=== PATIENT | male | born 1975 | race Caucasian/White ===

== ENCOUNTER 2019-04-13 11:47 | Emergency (ER) | payer MEDICAID ==
[~2019-04-13] VITALS: Ht 182.9 cm; Wt 79.1 kg
[~2019-04-13 11:47] MED LIST: ASPI-1009 PO; NITR0.4T SL; [UNRECOGNIZED DRUG - CODE] SL
[2019-04-13 12:01] VITALS: BP 111/70
[2019-04-13] MEDS ORDERED: AMOX-580 PO (12:23)
[2019-04-13] MEDS ORDERED: TETanus/Pertussis (Acell)/Diphther VAC/PF (Tdap-Adult) 0.5ml syringe IMVAC ONE (12:30)
== END 2019-04-13 12:45 | disposition home or self-care (01) ==
LOC: ER 11:48
DX: S91.332A Puncture wound without foreign body, left foot, initial encounter (principal); I25.10 Atherosclerotic heart disease of native coronary artery without angina pectoris; Z98.61 Coronary angioplasty status; Z60.2 Problems related to living alone; Z79.2 Long term (current) use of antibiotics; Z79.899 Other long term (current) drug therapy; W45.0XXA Nail entering through skin, initial encounter; Y93.89 Activity, other specified; Y92.89 Other specified places as the place of occurrence of the external cause; Y99.8 Other external cause status
CPT/HCPCS: 73630; 90471; 99283

== ENCOUNTER 2020-05-13 18:05 | Emergency (ER) | payer MEDICAID ==
[~2020-05-13] VITALS: Ht 182.9 cm; Wt 76.3 kg
[2020-05-13 18:33] VITALS: BP 111/66
== END 2020-05-13 20:49 | disposition home or self-care (01) ==
LOC: ER 18:06
DX: H61.23 Impacted cerumen, bilateral (principal); H92.01 Otalgia, right ear; I25.10 Atherosclerotic heart disease of native coronary artery without angina pectoris; Z98.890 Other specified postprocedural states; Z60.2 Problems related to living alone; Z79.899 Other long term (current) drug therapy
CPT/HCPCS: 69209; 99282

== ENCOUNTER 2021-02-15 22:51 | Emergency (ER) | payer MEDICAID | END 2021-02-16 01:01 | disposition left against medical advice (07) | LOC: ER 22:52 | DX: S09.90XA Unspecified injury of head, initial encounter (principal); Z53.21 Procedure and treatment not carried out due to patient leaving prior to being seen by health care provider; X58.XXXA Exposure to other specified factors, initial encounter; Y93.89 Activity, other specified; Y92.89 Other specified places as the place of occurrence of the external cause; Y99.8 Other external cause status ==

== ENCOUNTER 2021-11-19 10:47 | Emergency (ER) | payer MEDICAID ==
[~2021-11-19] VITALS: Ht 182.9 cm; Wt 77.3 kg
[2021-11-19 11:09] VITALS: BP 130/79
== END 2021-11-19 14:01 | disposition home or self-care (01) ==
LOC: ER 10:47
DX: H61.23 Impacted cerumen, bilateral (principal); I25.10 Atherosclerotic heart disease of native coronary artery without angina pectoris
CPT/HCPCS: 99281

== ENCOUNTER 2024-02-07 09:06 | Day surgery (SDC) | payer MEDICAID ==
[2024-01-31 15:27] LABS: BASOPHILS % (AUTO) 0.7 % (0-1); EOSINOPHILS # (AUTO) 0.1 X10'3 (0-0.9); EOSINOPHILS % (AUTO) 1.6 % (0-6); LYMPHOCYTES # (AUTO) 2.2 X10'3 (1.1-4.8); LYMPHOCYTES % (AUTO) 35.4 % (21-51); MEAN CORPUSCULAR HEMOGLOBIN 33.2 PG (27.0-31.0); MEAN CORPUSCULAR VOLUME 97.8 FL (78-98); MONOCYTES # (AUTO) 0.5 X10'3 (0-0.9); MONOCYTES % (AUTO) 8.5 % (2-12); NEUTROPHILS # (AUTO) 3.3 X10'3 (1.8-7.7); NEUTROPHILS % (AUTO) 53.8 % (42-75); PRE OP HEMATOCRIT 50.4 % (42.0-52.0); PRE OP HEMOGLOBIN 17.1 g/dL (14.0-17.9); PRE OP PLATELET COUNT 212 X10'3 (140-440); PRE OP WHITE BLOOD COUNT 6.2 10'3 (4.8-10.8); RED BLOOD COUNT 5.16 X10'6 (4.70-6.10)
[~2024-02-07] VITALS: Ht 182.9 cm; Wt 63.4 kg
[2024-02-07] VITALS (14 sets, daily range): BP systolic 124–166; BP diastolic 71–113; PULSE 53–94; RESP 14–21; TEMP 98.4; O2SAT 97–100
[2024-02-07] MEDS: cefazolin 2gm/D5W 100mL 100 ML IV ONE (05:30)
[~2024-02-07 09:06] MED LIST changes: -ASPI-1009 PO; +IBUP-49 PO; -NITR0.4T SL; -[UNRECOGNIZED DRUG - CODE] SL
[2024-02-07] MEDS: famotidine 20mg tablet PO ONE (09:40)
[2024-02-07] MEDS: ringers solution, lacted 1,000 ML IV SCH (09:41)
[2024-02-07] MEDS ORDERED: sevoflurane 250ml liquid IH ONE (09:47)
[2024-02-07] MEDS ORDERED: ondansetron/PF 4mg/2ml inj IV PRN (09:50)
[2024-02-07] MEDS ORDERED: meperidine/PF 25mg/ml syringe IV PRN ×3 (09:50)
[2024-02-07] MEDS ORDERED: morphine 4 MG/ML inj SYRINge IV PRN (09:50)
[2024-02-07] MEDS ORDERED: morphine 2 MG/ML inj. syringe IV PRN (09:50)
[2024-02-07] MEDS ORDERED: ringers solution, lacted 1,000 ML IV SCH (09:50)
[2024-02-07] MEDS ORDERED: proCHLORperazine 10 MG/2 ml inj IV PRN (09:50)
[2024-02-07] MEDS ORDERED: fentaNYL/PF 50MCG/1 ML 2ML syringe ONE (09:54)
[2024-02-07] MEDS ORDERED: midazolam 1 mg/ML 2ml injection ONE (09:54)
[2024-02-07] MEDS: BUPIVAcaine 2.5mg/ml inj 50ml vial (contains preservative) ONE (10:10)
[2024-02-07] MEDS: LIDOcaine 1% 30ml preserv. free vial ONE (10:10)
[2024-02-07] MEDS ORDERED: dexamethasone sod phosphate 4mg/ml inj. ONE (11:34)
[2024-02-07] MEDS ORDERED: rocuronium 10mg/ml inj IV ONE (11:34)
[2024-02-07] MEDS ORDERED: propofol inj 20 ML IV ONE (11:34)
[2024-02-07] MEDS ORDERED: glycopyrrolate 0.2mg/ml inj ONE (11:34)
[2024-02-07] MEDS ORDERED: neostigmine methylsulfate 1 MG/ML 10ml vial ONE (11:34)
[2024-02-07] MEDS ORDERED: ondansetron/PF 4mg/2ml inj ONE (11:34)
[2024-02-07] MEDS ORDERED: HYDROcodone/acetaminophen 5mg/325mg tablet PO PRN (11:35)
[2024-02-07] MEDS: HYDROcodone/acetaminophen 5mg/325mg tablet PO PRN (12:53)
== END 2024-02-07 14:54 | disposition home or self-care (01) ==
LOC: PAS 09:06
PROVIDERS: ATTEND Surgery
DX: K40.90 Unilateral inguinal hernia, without obstruction or gangrene, not specified as recurrent (principal); I45.10 Unspecified right bundle-branch block; I25.119 Atherosclerotic heart disease of native coronary artery with unspecified angina pectoris; F17.200 Nicotine dependence, unspecified, uncomplicated; Z86.73 Personal history of transient ischemic attack (TIA), and cerebral infarction without residual deficits; Z79.1 Long term (current) use of non-steroidal anti-inflammatories (NSAID); Z95.5 Presence of coronary angioplasty implant and graft; Z82.3 Family history of stroke; Z83.3 Family history of diabetes mellitus; Z82.49 Family history of ischemic heart disease and other diseases of the circulatory system
CPT/HCPCS: 36415; 49650; 82948; 85025; 93005; C1781; J0690; J1100; J2250; J2405; J2704; J2710; J3010; J3490; J7030; J7120; S2900; Z7506; Z7508; Z7512; A4215; A4314; A4618

== ENCOUNTER 2025-01-20 13:47 | Inpatient (IN) | payer MEDICAID ==
[~2025-01-20] VITALS: Ht 182.9 cm; Wt 66.5 kg
[2025-01-20] MEDS ORDERED: FLUO20TA28 PO (14:15)
[2025-01-20] MEDS ORDERED: BUPR-726 (14:15)
--- NOTE | 2025-01-20 14:18 | Physician Documentation ---
History of Present Illness Chief Complaint: Abdominal Pain Stated Complaint: ABDOMINAL PAIN OK to notify your PCP?: Yes Primary Medical Doctor: NONE Source: patient, family, RN/MD Mode of Arrival: POV Exam Limitations: no limitations HPI 49-year-old male presents with epigastric pain, tender to palpation since Tuesday. He denies any nausea or vomiting has been having hot and cold chills and sweats. He had a right inguinal here hernia repair with mesh 7 months ago. Patient does admit to drinking about four tall boys of beer daily. He states he has not drank alcohol for about six days. Patient denies any chest pain or shortness of breath or nausea, vomiting, diarrhea. Patient states he just does not feel well. He has no other concern or complaint at this time. Medication Reconciliation Allergies: Coded Allergies: No Known Allergies (Unverified , 03/09/11) Scheduled Fluoxetine HCl (Fluoxetine HCl), 1 TAB PO DAILY, (Reported) Scheduled PRN Ibuprofen (Ibu-200), 1-2 TAB PO Q6H PRN PRN for pain, (Reported) Miscellaneous Medications Bupropion HCl (Bupropion Xl), (Reported) Past Medical History Past Medical History: Coronary Artery Disease Past Surgical History: angioplasty Alcohol Use: None Drug Use: none Lives with: Alone Lives In: Home Occupation: other Review of Systems All Other Systems at this time: Reviewed and Negative Constitutional: Denies: chills, fever, weakness Eyes: Denies: pain, blurred vision ENT: Denies: ear pain, nose pain, throat pain, mouth pain Respiratory: Denies: cough, shortness of breath Cardiovascular: Denies: chest pain, palpitations Gastrointestinal: Denies: abdominal pain, nausea, vomiting Genitourinary: Denies: burning, dysuria Male Genitalia: Denies: penile discharge, testicular pain Neurological: Denies: headache, dizziness Musculoskeletal: Denies: pain, swelling Integumentary: Denies: rash, lesions Allergic/Immunologic: Denies: hives, itching Hematologic/Lymphatic: Denies: no symptoms reported Psychiatric: Denies: depression, anxiety Physical Exam Vital Signs: RN Vital Signs have been reviewed: Yes, Temperature: 97.6, Source: Oral, Heart Rate: 97, Respiratory Rate: 18, BP: 92/62, Pulse Oximetry: 98, Weight: 66.450 Oxygen Flow Rate: 0 Pulse Oximetry Reflects: adequate oxygenation Physical Exam General: Alert, no distress. HEENT: No injection, moist mucous membranes. Neck: Full range of motion. Respiratory: No respiratory distress, equal chest rise and fall. Chest: No accessory muscle use. Cardiovascular: Regular rate and rhythm. Gastrointestinal: Nondistended. Tender to palpation in epigastric region, patient has some guarding in the left upper quadrant, no rebound tenderness, no masses, abdomen is soft. Extremities: Normal range of motion, no deformity. Neurologic: Oriented x4. Psychiatric: Normal mood and affect. Skin: Normal color, warm and dry. Progress Results/Orders Results/Orders Orders - [facility] [employer] Urinalysis, Cult If Indicated (01/20/25 14:15) Cbc/Diff (01/20/25 14:15) BMP (01/20/25 14:15) Lipase (01/20/25 14:15) CMP (01/20/25 14:15) Vital Signs 01/20/25 14:10 Temp 97.6 Pulse 97 Resp 18 B/P (MAP) 92/62 Pulse Ox 98 O2 Flow Rate 0 EKG/XRAY/CT/US/VASC/MRI CT : Impression CAT SCAN Patient: SANAZ RAHMAN Medical Record: [id number] OF [facility] : 1975, Age: 49 Sex: Male Location: ER Patient Status: REG ER Service Date/Time: 01/20/251624 Ordering Physician: JLUIS PRIEST PAC Exam: CT ABDOMEN P DEBRA Exam: CT CT ABDOMEN PELVIS W/ IV CONTRAST History: LUQ abd pain COMPARISON: None Technique: Multidetector spiral CT of the abdomen and pelvis was performed from lung bases to pubic symphysis. Intravenous contrast was administered during this examination. Portal venous imaging was obtained. Axial, coronal and sagittal multiplanar reformats were performed by the technologist on a separate workstation. Radiation Dose : 1. Abdomen/Pelvis: CTDIvol 8.9 mGy, DLP 440 mGy*cm. CONTRAST: 100 mL omni 300 Findings: Lung Bases: Visualized heart is unremarkable. Along the posterior aspect of the bilateral lower lobes there is partial visualization of continuous subpleural blebs/ bullae. Calcified subcentimeter nodule in the right lower lobe is commonly due to old granulomatous disease. Liver: Liver measures 25 cm in craniocaudal length. There is diffusely decreased hepatic parenchymal attenuation. Normal hepatic vascular enhancement. Mild focal fatty sparing along the gallbladder fossa. Gallbladder and Biliary Tree: Possible mild pericholecystic fluid. No biliary ductal dilatation. Spleen: Spleen measures 13.3 cm in length. Pancreas: The pancreas is normal in appearance without focal lesions or abnormal enhancement. Adrenal Glands: Unremarkable Kidneys: Numerous small renal cysts and subcentimeter hypodensities which are too small to characterize. No hydronephrosis. Bladder: Unremarkable Bowel: Mild gastric wall thickening. Small bowel and colon are normal in caliber and distribution. Normal appendix is visualized in the right lower quadrant without findings of appendicitis. Ascites: Absent Lymphadenopathy: No mesenteric, retroperitoneal or periportal lymphadenopathy. Abdominal Wall and Mesentery: Unremarkable. Vasculature: The visualized abdominal aorta is normal in size and caliber. Abdominal and pelvic vessels demonstrate normal enhancement. Pelvic Organs: Unremarkable Musculoskeletal: No acute osseous abnormalities. Mild multilevel degenerative changes in the lumbar spine. IMPRESSION: 1. Mild gastric wall thickening could be due to poor distention versus gastritis. 2. Possible mild pericholecystic fluid. Consider right upper quadrant ultrasound if there are symptoms in this area. 3. Significant hepatomegaly and steatosis. Mild splenomegaly. 4. Numerous small bilateral renal cysts. 5. Subpleural blebs/ bullae at the lung bases. Radiation optimization: All CT scans at this facility use at least one of these dose optimization techniques: automated exposure control mA and/or kV adjustment per patient size (includes targeted exams where dose is matched to clinical indication) or iterative reconstruction. Electronically Signed by:JAMISON REGALADO DO Date & Time: 01/20/252045 Dictated by: JAMISON REGALADO DO Dictation date and time: 01/20/252045 Primary Care Provider: NO PRIMARY CARE PROVIDER cc: JLUIS PRIEST ~ Medical Decision Making Findings 49-year-old male presents with epigastric pain, tender to palpation since Tuesday. He denies any nausea or vomiting has been having hot and cold chills and sweats. He had a right inguinal here hernia repair with mesh 7 months ago. Patient does admit to drinking about four tall boys of beer daily. He states he has not drank alcohol for about six days. Patient denies any chest pain or shortness of breath or nausea, vomiting, diarrhea. Patient states he just does not feel well. He has no other concern or complaint at this time. Patient did have blood work which showed significant elevation of the LFTs as well as hyponatremia and thrombocytopenia. Hospitalist was consulted. CT scan of abdomen did show hepatomegaly. Patient will be admitted to the hospital. For further eval and treatment. Departure Disposition: ADMITTED INPATIENT Admitted to Inpatient Unit: to hospitalist Admission Level of Care: Med/Surg Impression: Primary Impression: Abdominal pain Qualified Codes: R10.13 - Epigastric pain Additional Impressions: LFT elevation Hepatomegaly Alcoholism Condition: Stable Discharge Instructions: Abdominal Pain (Nonspecific) Additional Instructions: Patient did have blood work which showed significant elevation of the LFTs as well as hyponatremia and thrombocytopenia. Hospitalist was consulted. CT scan of abdomen did show hepatomegaly. Patient will be admitted to the hospital. For further eval and treatment. Referrals: NO PRIMARY CARE PROVIDER (PCP) Additional Comment Medical Screen Exam This patient recieved a medical screening examination. After reviewing the individual's medical complaints with presenting symptoms and performing an appropriate physical examination, it was determined that no immediate life- threatening emergency medical condition is present. This individual is also not a women having contractions. Signature Scribe Signature: No scribe Attestation: No scribe [employer] Jan 20, 2025 14:18 JLUIS PRIEST Jan 21, 2025 00:01
[2025-01-20 14:52] LABS: BASOPHILS % (AUTO) 0.2 % (0-1); EOSINOPHILS % (AUTO) 0.1 % (0-6); HEMATOCRIT 49.6 % (42.0-52.0); HEMOGLOBIN 17.1 g/dl (14.0-17.9); LYMPHOCYTES # (AUTO) 0.4 X10'3 (1.1-4.8); LYMPHOCYTES % (AUTO) 10.7 % (21-51); MEAN CORPUSCULAR HEMOGLOBIN 32.3 PG (27.0-31.0); MEAN CORPUSCULAR HGB CONC 34.5 g/dL (33.0-36.5); MEAN CORPUSCULAR VOLUME 93.5 FL (78-98); MEAN PLATELET VOLUME 9.9 FL (7.4-10.4); MONOCYTES # (AUTO) 0.3 X10'3 (0-0.9); MONOCYTES % (AUTO) 7.2 % (2-12); NEUTROPHILS # (AUTO) 3.1 X10'3 (1.8-7.7); NEUTROPHILS % (AUTO) 81.8 % (42-75); PLATELET COUNT 51 X10'3 (140-440); RED CELL DISTRIBUTION WIDTH 14.3 % (11.5-14.5); WHITE BLOOD COUNT 3.7 X10'3 (4.5-11.0)
[2025-01-20 14:57] LABS: ANION GAP 6 (8-16); BLOOD UREA NITROGEN 21 MG/DL (7-18); CHLORIDE 95 MMOL/L (99-107); CREATININE 1.04 MG/DL (0.60-1.10); GLUCOSE 125 MG/DL (70-104); POTASSIUM 3.5 MMOL/L (3.5-5.1); SODIUM 132 MMOL/L (135-145); TOTAL CARBON DIOXIDE 30.6 MMOL/L (24-32)
[2025-01-20 14:58] LABS: ALANINE AMINOTRANSFERASE 615 U/L (12-78); ALBUMIN 3.2 G/DL (3.4-5.0); ALBUMIN/GLOBULIN RATIO 0.8 (1.1-1.5); ALKALINE PHOSPHATASE 180 IU/L (46-116); ASPARTATE AMINO TRANSFERASE 841 U/L (10-37); BILIRUBIN,TOTAL 3.1 MG/DL (0.1-1.0); BUN/CREATININE RATIO 20.2 (10.0-20.0); CALCIUM 8.4 MG/DL (8.5-10.1); LIPASE 49 U/L (16-77); TOTAL PROTEIN 7.2 G/DL (6.4-8.2); eCRCL 79 ML/MIN; eGFR 75 ML/MIN
[2025-01-20 15:21] LABS: BILIRUBIN,URINE LARGE (Neg); CLARITY,URINE SLIGHTLY CLOUDY (Clear); GLUCOSE, URINE 250 mg/dl (Neg); KETONES,URINE TRACE mg/dl (Neg); LEUKOCYTE ESTERASE ,URINE NEGATIVE (Neg); NITRITES, URINE NEGATIVE (Neg); OCCULT BLOOD,URINE TRACE-INTACT (Neg); PROTEIN,URINE >=300 mg/dl (Neg); UROBILINOGEN,URINE >=8.0 E.U/dL (0.2-1.0)
[2025-01-20 15:34] LABS: COLOR,URINE AMBER (Yellow); UA COLLECTION TYPE CLN CATCH MIDSTREAM
[2025-01-20 15:35] LABS: RBC,URINE 0-2 /HPF (0-2); WBC,URINE 0-4 /HPF (0-4)
[2025-01-20 15:36] LABS: BACTERIA,URINE FEW /HPF (Neg); SQUAMOUS EPITHELIAL CELL,UR FEW /LPF (FEW)
[2025-01-20 15:37] LABS: AMORPHOUS URATES 1+; COARSE GRANULAR CAST 0-3 /LPF (NEGATIVE); FINE GRANULAR CAST 0-3 /LPF (NEGATIVE)
[2025-01-20] MEDS ORDERED: iohexol 300mg/ml 100ml inj. ONE (17:02)
--- NOTE | 2025-01-20 20:48 | RADIOLOGY REPORT ---
Exam: CT CT ABDOMEN PELVIS W/ IV CONTRAST History: LUQ abd pain COMPARISON: None Technique: Multidetector spiral CT of the abdomen and pelvis was performed from lung bases to pubic s ymphysis. Intravenous contrast was administered during this examination. Portal venous imaging was obtained. Axial, coronal and sagittal multiplanar reformats were performed by the technologist on a separate workstation. Radiation Dose : 1. Abdomen/Pelvis: CTDIvol 8.9 mGy, DLP 440 mGy*cm. CONTRAST: 100 mL omni 300 Findings: Lung Bases: Visualized heart is unremarkable. Along the posterior aspect of the bilateral lower lobes there is partial visualization of continuous subpleural blebs/ bullae. Calcified subcentimeter nodul e in the right lower lobe is commonly due to old granulomatous disease. Liver: Liver measures 25 cm in craniocaudal length. There is diffusely decreased hepatic parenchymal attenuation. Normal hepatic vascular enhancement. Mild focal fatty sparing along the gallbladder f tremayne. Gallbladder and Biliary Tree: Possible mild pericholecystic fluid. No biliary ductal dilatation. Spleen: Spleen measures 13.3 cm in length. Pancreas: The pancreas is normal in appearance without focal lesions or abnormal enhancement. Adrenal Glands: Unremarkable Kidneys: Numerous small renal cysts and subcentimeter hypodensities which are too small to characte rize. No hydronephrosis. Bladder: Unremarkable Bowel: Mild gastric wall thickening. Small bowel and colon are normal in caliber and distribution. N ormal appendix is visualized in the right lower quadrant without findings of appendicitis. Ascites: Absent Lymphadenopathy: No mesenteric, retroperitoneal or periportal lymphadenopathy. Abdominal Wall and Mesentery: Unremarkable. Vasculature: The visualized abdominal aorta is normal in size and caliber. Abdominal and pelvic vess els demonstrate normal enhancement. Pelvic Organs: Unremarkable Musculoskeletal: No acute osseous abnormalities. Mild multilevel degenerative changes in the lumbar spine. IMPRESSION: 1. Mild gastric wall thickening could be due to poor distention versus gastritis. 2. Possible mild pericholecystic fluid. Consider right upper quadrant ultrasound if there are sympto ms in this area. 3. Significant hepatomegaly and steatosis. Mild splenomegaly. 4. Numerous small bilateral renal cysts. 5. Subpleural blebs/ bullae at the lung bases. Radiation optimization: All CT scans at this facility use at least one of these dose optimization nicolette hniques: automated exposure control mA and/or kV adjustment per patient size (includes targeted exam s where dose is matched to clinical indication) or iterative reconstruction.
[2025-01-20 21:09] LABS: ACETAMINOPHEN < 2.0 UG/ML (10-30); ETHANOL < 10 MG/DL (<10)
[2025-01-20] MEDS: ketorolac trometh 30MG/ML vial 30 MG/ML VIAL IV STA (21:33)
[2025-01-20] MEDS: nicotine 21mg patch - 24 hr TD STA (21:34)
[2025-01-20 21:50] VITALS: RESP 12; O2SAT 95
[2025-01-20] MEDS ORDERED: dextrose 50%-water 50ml dispensing syringe IV PRN (21:55)
[2025-01-20] MEDS ORDERED: acetaminophen 325mg tablet PO PRN (21:55)
[2025-01-20] MEDS ORDERED: magnesium Cl slow-release 64mg tablet PO PRN ×2 (21:55)
[2025-01-20] MEDS ORDERED: LORazepam 1 MG tablet PO PRN (21:55)
[2025-01-20] MEDS ORDERED: ondansetron/PF 4mg/2ml inj IV PRN (21:55)
[2025-01-20] MEDS ORDERED: potassium Cl 40MEQ/1/2NS 520ml 520 ML IV PRN (21:55)
[2025-01-20] MEDS ORDERED: LORazepam 2 mg/ml vial IV PRN (21:55)
[2025-01-20] MEDS ORDERED: haloperidol lactate 5mg/ml inj IM PRN (21:55)
[2025-01-20] MEDS ORDERED: mag hydrox/Alum hydrox/simeth 30ml oral suspension PO PRN (21:55)
[2025-01-20] MEDS ORDERED: magnesium sulf-water 4G/100mL 100 ML IV PRN ×2 (21:55)
[2025-01-20] MEDS ORDERED: haloperidol 5mg tablet PO PRN (21:55)
[2025-01-20] MEDS ORDERED: magnesium sulf-water 2g/50mL 50 ML IV PRN ×2 (21:55)
[2025-01-20] MEDS ORDERED: magnesium hydroxide 30ml (MOM) UD suspension PO PRN (21:55)
[2025-01-20] MEDS: PERFLUTREN PROTEIN-A MICROSPHR (Optison) 0.22 MG/ML 3ML VIAL IV ONE (21:55)
[2025-01-20 22:00] VITALS: BP 95/71; PULSE 109; RESP 12; TEMP 98.5; O2SAT 95
[2025-01-20] MEDS: normal saline 1000ml 1,000 ML IV SCH (22:11)
[2025-01-20] MEDS: nicotine 14mg patch - 24hr TD ONE (23:20)
--- NOTE | 2025-01-20 23:24 | HISTORY AND PHYSICAL-Residence ---
History & Physical Providers to CC Resident Creating Document: AYUSH OSORIO, RES CC: WINSOME PEDRO MD ~ History of Present Illness Primary Medical Doctor: NONE Reason for Admit\Complaint: Abdominal pain since Tuesday History of Present Illness A 49-year-old male with no significant medical history presented to the ED with periumbilical and epigastric pain that started on Tuesday with a severity of 6/10, sharp pain in character, no radiation, does not increased on deep breaths or any other aggravating factors but decreases with pain meds. Patient went to primary care doctor on Tuesday who recommended labs and ultrasound. Patient also had associated fever, chills and diarrhea for the last two days. Patient describes the diarrhea as lose formed stools for about 6-7 episodes but no associated blood. Patient denies nausea vomitings. Reportedly, patient had a hip near repair done eight months ago with Dr. Lema. Patient never underwent colonoscopy or upper GI endoscopy. Patient did not have at domestic or international travel or similar episodes in the past. Patient does not report similar symptoms in the family. Allergies: Coded Allergies: No Known Allergies (Unverified , 03/09/11) Home Medications Home Medications Active Reported Bupropion Xl (Bupropion HCl) 150 Mg Tab.er.24h Fluoxetine HCl 20 Mg Tablet 1 Tab PO DAILY Ibu-200 (Ibuprofen) 200 Mg Tablet 1-2 Tab PO Q6H PRN PRN NEEDED Past Medical History Past Medical History None Past Surgical History Surgical History Comment Right-sided hernia repair Past Social History Social History Comment Patient lives at home with and children Patient's primary care is ESR mg Patient smokes one pack of cigarettes per day for 13 years Patient concern for two five beers per day with the last 13 years Patient works with heavy equipment Patient denies marijuana or illicit drug use Smoking: Cigarettes, Less than 1 pack/day Alcohol Use: None Drug Use: None Lives with: Alone Lives In: Home Occupation: other ROS ROS All other systems reviewed in full and negative except for the pertinent positives mentioned in the HPI Exam Vitals: Vital Signs Date Time Temp Pulse Resp B/P (MAP) Pulse Ox O2 Delivery O2 Flow Rate FiO2 01/20/25 21:33 16 01/20/25 20:50 94 132/87 (102) 99 01/20/25 15:08 97.6 0 General: General: Alert, awake, oriented, not in acute distress HEENT: PERRLA, no icterus, pallor, lymphadenopathy, carotid bruit, loss of few teeth in the oral cavity Respiratory system: Bilateral vesicular breath sounds heard, no adventitious breath sounds CVS: S1-S2 heard, no murmurs/rubs/gallop GI: Tenderness in the epigastric and periumbilical region, Soft, no organomegaly, no guarding/rigidity, bowel sounds present Neuro: No focal neurological deficits present Extremities: No edema cyanosis clubbing/deformities Skin: Warm and dry Diagnostic Data Last Recorded Lab Results: 01/20/25 1432 01/20/25 1432 Advance Care Planning Advanced Care plannin - 30 Minutes (I spent 20 minutes discussing various resuscitative measures and the patient decided to be full code) Additional Plan Assessment: 49-year-old male with no significant past medical history presented to the ED with periumbilical and epigastric abdominal pain. Patient is admitted for the evaluation management of abdominal pain probably secondary to acute cholecystitis. Plan: Acute abdominal pain 2/2 probably acute cholecystitis Acute pancreatitis, ruled out Can not exclude underlying acute gastritis, alcohol-induced Hyperbilirubinemia Elevated transaminases Close to normal WBC count, normal lipase Acetaminophen levels and ethyl alcohol levels normal CT abdomen: Mild gastric wall thickening could be due to poor distention versus gastritis. Possible mild pericholecystic fluid. Significant hepatomegaly and steatosis. Mild splenomegaly. Numerous small bilateral renal cysts. Subpleural blebs/ bullae at the lung bases. Follow up with ultrasound abdomen IV fluids at 100 cc/hour Pain management p.r.n. Consultation with surgeon in a.m. Tobacco use disorder Alcohol use disorder Nicotine patch Social service consulted Code status: Full code Diet: NPO DVT prophylaxis: SCD Disposition: Admit to ortho, surgery consult in a.m., follow up with ultrasound abdomen Ayush Osorio MD Internal Medicine, PGY 1 Pt seen and evaluated hx of abdominal pain and fever hemodynamics are stable CT with suggestion of gall bladder pathology Liver enzymes elevated Will start on IV zosyn get Rt Upper Quadrant ultrasound make npo for now consult surgery IV D5NS @ 100cc/hr we will follow Date of Service: Jan 20, 2025 Billing Provider: WINSOME PEDRO MD, SIVA, RES Jan 20, 2025 23:24 WINSOME PEDRO MD Jan 21, 2025 02:41
[2025-01-21] MEDS: morphine 2 MG/ML inj. syringe IV PRN (01:26)
[2025-01-21] MEDS ORDERED: ondansetron/PF 4mg/2ml inj IV PRN (02:55)
[2025-01-21 06:00] VITALS: BP 95/48; PULSE 88; RESP 18; TEMP 98.1; O2SAT 98
[2025-01-21 06:12] LABS: LYMPHOCYTES # (AUTO) 0.7 X10'3 (1.1-4.8); MEAN CORPUSCULAR VOLUME 92.9 FL (78-98); WHITE BLOOD COUNT 3.4 X10'3 (4.5-11.0)
[2025-01-21 06:14] LABS: BASOPHILS % (AUTO) 0.7 % (0-1); EOSINOPHILS % (AUTO) 0.2 % (0-6); HEMATOCRIT 44.5 % (42.0-52.0); HEMOGLOBIN 15.5 g/dl (14.0-17.9); LYMPHOCYTES % (AUTO) 19.1 % (21-51); MEAN CORPUSCULAR HEMOGLOBIN 32.4 PG (27.0-31.0); MEAN CORPUSCULAR HGB CONC 34.9 g/dL (33.0-36.5); MEAN PLATELET VOLUME 10.5 FL (7.4-10.4); MONOCYTES # (AUTO) 0.4 X10'3 (0-0.9); MONOCYTES % (AUTO) 10.4 % (2-12); NEUTROPHILS # (AUTO) 2.4 X10'3 (1.8-7.7); NEUTROPHILS % (AUTO) 69.6 % (42-75); RED BLOOD COUNT 4.79 X10'6 (4.70-6.10); RED CELL DISTRIBUTION WIDTH 14.5 % (11.5-14.5)
[2025-01-21 06:37] LABS: PLATELET COUNT 46 X10'3 (140-440)
[2025-01-21 06:44] LABS: ALANINE AMINOTRANSFERASE 519 U/L (12-78); ALBUMIN 2.7 G/DL (3.4-5.0); ALBUMIN/GLOBULIN RATIO 0.8 (1.1-1.5); ALKALINE PHOSPHATASE 167 IU/L (46-116); ANION GAP 8 (8-16); ASPARTATE AMINO TRANSFERASE 703 U/L (10-37); BILIRUBIN,TOTAL 3.5 MG/DL (0.1-1.0); BLOOD UREA NITROGEN 21 MG/DL (7-18); BUN/CREATININE RATIO 23.6 (10.0-20.0); CALCIUM 7.7 MG/DL (8.5-10.1); CHLORIDE 96 MMOL/L (99-107); CHOLESTEROL < 50 MG/DL (0-200); CREATININE 0.89 MG/DL (0.60-1.10); GLUCOSE 119 MG/DL (70-104); HDL CHOLESTEROL 10 MG/DL (35-60); LDL CHOLESTEROL 14 MG/DL (50-100); MAGNESIUM 1.9 MG/DL (1.5-2.4); POTASSIUM 3.4 MMOL/L (3.5-5.1); SODIUM 133 MMOL/L (135-145); TOTAL CARBON DIOXIDE 28.7 MMOL/L (24-32); TOTAL PROTEIN 6.1 G/DL (6.4-8.2); TRIGLYCERIDES 94 MG/DL (20-135); eCRCL 92 ML/MIN; eGFR 90 ML/MIN
[2025-01-21] MEDS: dextrose 5%-normal saline 1,000 ML IV SCH (06:46)
--- NOTE | 2025-01-21 07:02 | RADIOLOGY REPORT ---
EXAM: US Abdomen Limited, Right Upper Quadrant CLINICAL INDICATION: Pain TECHNIQUE: Real-time ultrasound of the right upper quadrant with image documentation. COMPARISON: No relevant prior studies available. FINDINGS: LIVER: Liver measures up to 1.3 cm. Fatty infiltration of the liver. No intrahepatic bile duct dil ation. GALLBLADDER: Small amount of edema adjacent to the gallbladder. No gallstones. COMMON BILE DUCT: Unremarkable as visualized. No stones. No dilation. Common bile duct measures 0 .45 cm in diameter. PANCREAS: Pancreas is obscured. RIGHT KIDNEY: Right kidney measures up to 12.8 cm. No stones. No hydronephrosis. IMPRESSION: 1. Fatty infiltration of the liver. 2. Findings equivocal for acute cholecystitis. Further evaluation with HIDA scan is recommended.
[2025-01-21 07:26] LABS: HEMOGLOBIN A1C 5.8 % (4.5-6.2)
[2025-01-21] MEDS ORDERED: heparin, porcine 5000 units/ml vial SQ SCH (08:00)
[2025-01-21] MEDS: piperacillin/tazo 4.5gm/100ml 100 ML IV SCH (08:00)
[2025-01-21] MEDS: K and/or MAG REPLACEMENT MC SCH (08:00)
[2025-01-21] MEDS: docusate sod 100mg capsule PO SCH (08:00)
[2025-01-21 11:00] VITALS: BP 103/37; PULSE 80; RESP 16; TEMP 97.4; O2SAT 98
[2025-01-21] MEDS: folic acid 1mg/0.2ml inj IV SCH (11:06)
[2025-01-21] MEDS: thiamine 100mg/ml 2ml inj. IV SCH (11:06)
--- NOTE | 2025-01-21 14:51 | RADIOLOGY REPORT ---
MR MRCP HISTORY: Markedly elevated bilirubin and liver function tests COMPARISON: CT dated 01/20/2015, ultrasound dated 01/21/2025 PROCEDURE: Multiplanar multisequence MRI images were obtained of the abdomen without intravenous cont rast Additional MIPS were obtained of the biliary system. FINDINGS: Bile ducts: -Intrahepatic ducts: Non-dilated. -Extrahepatic ducts: Non-dilated. -Common bile duct: Non-dilated. -Filling defects: No filling defects -Stricture: None. Gallbladder: Cholelithiasis. Mild pericholecystic edema. Pancreas: Pancreatic duct: No ductal dilatation. Lesions: None. Liver: Signal intensity: Hepatic steatosis. Hepatomegaly. Contour: Smooth. Size: Normal. Lesions: No focal liver lesion. ADDITIONAL FINDINGS: Lung base: Normal. Pancreas: Normal. Spleen:Normal. Bowel: Normal. Adrenal glands:Normal. Kidneys and ureters: Bilateral renal cysts. Lymph nodes:Normal. Peritoneum:Normal. Vessels: Normal. Abdominal wall: Normal. Bone: No aggressive bone lesions IMPRESSION: Cholelithiasis and pericholecystic edema. No choledocholithiasis. MRCP sequences are motion degraded. Hepatomegaly and hepatic steatosis.
--- NOTE | 2025-01-21 17:35 | RADIOLOGY REPORT ---
Procedure: NM NM HIDA SCAN Exam Date: 01/21/2025 12:47 PM Clinical History: Eval for cholecystitis Comparison Study: 01/20/2025 Nuclear Medicine Hepatobiliary Scan. Technique: Following the intravenous administration of 6 mCi of technetium 99m labeled Choletec multiple planar abdominal planar images were obtained in anterior projection in 1 minute intervals for 60 minutes . R ight lateral images were obtained at 60 minutes after injection. Findings: The liver appears grossly normal in size. The gallbladder and duodenum project over each other on the AP view but on the right lateral view there is evidence of the gallbladder filling by 16 minutes. CC K was given however given that the gallbladder and duodenum project over each other on the frontal vi ew this limits characterization. Impression: No evidence for cystic duct obstruction. Suboptimal evaluation for gallbladder EF evaluation.
--- NOTE | 2025-01-21 17:52 | CARDIOLOGY REPORT ---
APPROVED REPORT EXAM: Comprehensive 2D, Doppler, and color-flow Echocardiogram. Patient Location: [address] Rhythm: SINUS Indications CONGESTIVE HEART FAILURE Strategic Analyst: NONE Previous echo: NONE 2D Dimensions RVDd 3.5 cm IVSd 0.9 (0.7-1.1cm) LVDd 4.6 cm PWd 0.9 (0.7-1.1cm) IVSs 1.2 (0.8-1.2cm) LVDs 3.2 (2.5-4.0cm) PWs 1.3 (0.8-1.2cm) LVOT Diameter 2.00 (1.8-2.4cm) LVEF(%) 55.3 (>50%) FS (%) 28.7 % SV 52.7 ml CO 4.4 L/min M-Mode Dimensions Left Atrium(MM) 3.73 (2.5-4.0cm) Aortic Root 2.69 (2.2-3.7cm) Aortic Cusp Exc 1.86 (1.5-2.0cm) Aortic Valve AoV Peak Anderson. 148.3 cm/s AoV VTI 26.2 cm AO Peak GR. 8.8 mmHg AO Mean GR. 6 mmHg LVOT VTI 20.88 cm LVOT Peak Anderson. 110.1 cm/s JASON(VTI)/BSA 2.50 cm2/m2 JASON (VTI) 2.50 cm2 Mitral Valve MV E Velocity 68.3 cm/s MV Peak Gr. 4 mmHg MV DECEL TIME 204 ms MV A Velocity 73.8 cm/s MV PHT 60 ms E/A Ratio 0.9 MVA (PHT) 3.67 cm2 MV SXph491.6 cm/s LEFT VENTRICLE Normal LV size and wall thickness. Overall systolic function is normal. LVEF is 60-65%. RIGHT VENTRICLE RV is mildly dilated in size with normal function. ATRIA The left atrium size is normal. AORTIC VALVE Trileaflet AV appears mildly sclerotic without stenosis. No insufficiency. MITRAL VALVE Mild MV annular calcification without stenosis. Trace regurgitation. TRICUSPID VALVE TV appears structurally normal with trace regurgitation. PULMONIC VALVE Normal PV without stenosis, no insufficiency. GREAT VESSELS The aortic root is normal in size. IVC appears normal in size and collapses greater than 50% with ins piration. PERICARDIUM Normal pericardium. No effusion. Other Information Study Quality: Adequate Conclusion Normal LV size and wall thickness. Overall systolic function is normal. LVEF is 60-65%. RV is mildly dilated in size with normal function. The left atrium size is normal. Trileaflet AV appears mildly sclerotic without stenosis. No insufficiency. Mild MV annular calcification without stenosis. Trace regurgitation. TV appears structurally normal with trace regurgitation. Normal pericardium. No effusion.
[2025-01-21 18:00] VITALS: BP_SYST 109; BP_SYST 91; BP_DIAS 53; BP_DIAS 64; PULSE 81; PULSE 83; RESP 13; RESP 15; TEMP 97.8; TEMP 99.7; O2SAT 97
--- NOTE | 2025-01-21 18:50 | PROGRESS NOTE ---
Daily Progress Note Providers to CC ~ Antibiotic Timeout Antibiotic Ordered?: Yes Subjective The patient is bilirubin is up trending an MRCP was obtained however was negative for choledocholithiasis and HIDA scan was obtained which a EF was not able to be calculated. I contacted Dr. Jonel Lira surgeon for a consult Objective Vital Signs Date Time Temp Pulse Resp B/P (MAP) Pulse Ox O2 Delivery O2 Flow Rate FiO2 01/21/25 11:00 97.4 80 16 103/37 (59) 98 Room Air 01/20/25 22:00 0.0 Result Diagram: 01/21/2543701/21/25437 Gen. No acute distress alert and oriented 4 Lungs clear to ascultation bilaterally, no wheezes rales or rhonchi appreciated Heart normal sinus rhythm no murmurs rubs or clicks noted Abdomen semi firm, significant guarding, nontender bowel sounds are normoactive Lower extremities no clubbing cyanosis, nor edema appreciated bilaterally Problem\Assessment\Plan Problems/Diagnosis: (1) Acute cholecystitis # acute cholecystitis- MRCP was obtained that was negative for choledocholithiasis even though the bilirubin is up trending The EF was not able to be calculated and a HIDA scan. on IV Zosyn awaiting surgical consult with Dr. Jonel Lira # alcohol use disorder Alcohol withdrawal protocol # thrombocytopenia Note the patient has a normal platelet count in 2023 drawn just prior to inguinal hernia repair # tobacco use disorder Nicotine patch # hypokalemia on potassium replacement protocol Date of Service: Jan 21, 2025 Billing Provider: PAUL GALLOWAY DO Common Visit Codes: 21080-[id number] INP/OBS CARE(HIGH) PAUL GALLOWAY DO Jan 21, 2025 18:50
[2025-01-21 20:00] VITALS: RESP 15; O2SAT 97
[2025-01-21] MEDS: potassium Cl 20 mEq SR tablet PO PRN ×2 (20:50→23:47)
[2025-01-21 22:00] VITALS: BP 91/53; PULSE 83; RESP 13; TEMP 99.7; O2SAT 97
[2025-01-22 04:23] LABS: EOSINOPHILS % (AUTO) 0.2 % (0-6); HEMOGLOBIN 13.7 g/dl (14.0-17.9); LYMPHOCYTES # (AUTO) 1.4 X10'3 (1.1-4.8); MONOCYTES # (AUTO) 0.6 X10'3 (0-0.9); NEUTROPHILS # (AUTO) 2.5 X10'3 (1.8-7.7); PLATELET COUNT 57 X10'3 (140-440); RED CELL DISTRIBUTION WIDTH 14.5 % (11.5-14.5); WHITE BLOOD COUNT 4.5 X10'3 (4.5-11.0)
[2025-01-22 04:27] LABS: BASOPHILS % (AUTO) 0.6 % (0-1); HEMATOCRIT 39.6 % (42.0-52.0); LYMPHOCYTES % (AUTO) 30.2 % (21-51); MEAN CORPUSCULAR HGB CONC 34.6 g/dL (33.0-36.5); MEAN CORPUSCULAR VOLUME 92.5 FL (78-98); RED BLOOD COUNT 4.28 X10'6 (4.70-6.10)
[2025-01-22 04:44] LABS: ALANINE AMINOTRANSFERASE 420 U/L (12-78); ALBUMIN 2.1 G/DL (3.4-5.0); ALBUMIN/GLOBULIN RATIO 0.7 (1.1-1.5); ALKALINE PHOSPHATASE 166 IU/L (46-116); ANION GAP 3 (8-16); ASPARTATE AMINO TRANSFERASE 597 U/L (10-37); BILIRUBIN,TOTAL 3.6 MG/DL (0.1-1.0); BLOOD UREA NITROGEN 18 MG/DL (7-18); BUN/CREATININE RATIO 19.4 (10.0-20.0); CALCIUM 7.2 MG/DL (8.5-10.1); CHLORIDE 100 MMOL/L (99-107); CREATININE 0.93 MG/DL (0.60-1.10); GLUCOSE 139 MG/DL (70-104); POTASSIUM 3.8 MMOL/L (3.5-5.1); SODIUM 132 MMOL/L (135-145); TOTAL PROTEIN 5.3 G/DL (6.4-8.2); eCRCL 88 ML/MIN; eGFR 86 ML/MIN
[2025-01-22 05:13] LABS: BANDS% (MANUAL) 16 % (0-10); LYMPHOCYTES % (MANUAL) 23 % (21-51); METAMYLEOCYTES% (MANUAL) 1 % (0-0); MONOCYTES % (MANUAL) 10 % (2-12); NEUTROPHILS % (MANUAL) 50 % (42-75); SMUDGE CELLS FEW; TOTAL CELLS COUNTED 100
[2025-01-22 05:18] LABS: PLATELET ESTIMATE DECREASED
[2025-01-22 06:00] VITALS: BP 93/55; PULSE 73; RESP 13; TEMP 98.9; O2SAT 97
[2025-01-22 08:00] VITALS: RESP 13; O2SAT 97
[2025-01-22 10:00] VITALS: BP 105/61; PULSE 84; RESP 14; TEMP 98; O2SAT 98
--- NOTE | 2025-01-22 10:01 | ELECTROCARDIOGRAPH REPORT ---
[facility] Test Date: 2025-01-22 Test Time: 10:00:25 Pat Name: SANAZ RAHMAN Department: [facility] Patient ID: [facility]-[id number] Room: [place] [address] Gender: M Day Care Aide: : 1975 Requested By: OWEN STONE Order Number: [id number] Reading MD: Dr. BHARTI Posey Measurements Intervals Britt Rate: 68 P: 69 UT: 175 QRS: 68 QRSD: 111 T: 64 QT: 408 QTc: 434 Interpretive Statements Sinus rhythm Abnormal R-wave progression, early transition Electronically Signed On 01-25-2025 19:12:[address] BHARTI Posey Please click the below link to view image of tracing.
[2025-01-22 11:23] VITALS: BP 140/58; PULSE 76; RESP 18; TEMP 97.9; O2SAT 93
[2025-01-22] MEDS ORDERED: BUPIVAcaine 2.5mg/ml inj 50ml vial (contains preservative) ONE (14:52)
--- NOTE | 2025-01-22 15:23 | PROGRESS NOTE ---
Daily Progress Note Providers to CC ~ Antibiotic Timeout Antibiotic Ordered?: Yes Subjective The patient continues to experience abdominal tenderness, his platelet count is improving. The patient is going for a cholecystectomy this afternoon Objective Vital Signs Date Time Temp Pulse Resp B/P (MAP) Pulse Ox O2 Delivery O2 Flow Rate FiO2 01/22/25 11:23 98.1 76 18 93 01/22/25 10:00 105/61 (76) Room Air 01/22/25 08:00 0.0 Result Diagram: 01/22/2541201/22/25412 Gen. No acute distress alert and oriented 4 Lungs clear to ascultation bilaterally, no wheezes rales or rhonchi appreciated Heart normal sinus rhythm no murmurs rubs or clicks noted Abdomen semi firm, significant guarding, nontender bowel sounds are normoactive Lower extremities no clubbing cyanosis, nor edema appreciated bilaterally Problem\Assessment\Plan Problems/Diagnosis: (1) Acute cholecystitis # acute cholecystitis- MRCP was obtained that was negative for choledocholithiasis even though the bilirubin is up trending The EF was not able to be calculated and a HIDA scan. on IV Zosyn awaiting surgical consult with Dr. Jonel Lira #01/22 cholecystectomy this afternoon with Dr. Lira # transaminitis with slight improvement in liver function Monitor daily CMP Likely secondary to acute cholecystitis as well as chronic liver disease # alcohol use disorder Alcohol withdrawal protocol # thrombocytopenia Note the patient has a normal platelet count in 2023 drawn just prior to inguinal hernia repair #01/22 platelet count slightly up trending continue monitor daily CBC # tobacco use disorder Nicotine patch # hypokalemia on potassium replacement protocol Date of Service: Jan 22, 2025 Billing Provider: PAUL GALLOWAY DO Common Visit Codes: [id number] INP/OBS CARE(HIGH) PALU GALLOWAY DO Jan 22, 2025 15:23
[2025-01-22] MEDS ORDERED: magnesium citrate 296ml oral solution PO ONE (15:45)
[2025-01-22] MEDS: HYDROcodone/acetaminophen 5mg/325mg tablet PO PRN (16:36)
--- NOTE | 2025-01-22 17:19 | PROGRESS NOTE ---
Progress Note ID Providers to CC ~ Progress Note Progress Note: pt seen and examined-needs vianey healy-discussed procedure including risks/benefits/alternatives OWEN STONE MD Jan 22, 2025 17:18
[2025-01-22 18:00] VITALS: BP 96/56; PULSE 78; RESP 15; TEMP 98.6; O2SAT 97
[2025-01-22 22:00] VITALS: BP 102/58; PULSE 59; RESP 12; TEMP 96.4; O2SAT 96
[2025-01-23] VITALS (20 sets, daily range): BP systolic 89–113; BP diastolic 50–65; PULSE 42–71; RESP 12–29; TEMP 97.4–98.6; O2SAT 91–98
[2025-01-23 04:21] LABS: HEMOGLOBIN 13.8 g/dl (14.0-17.9); LYMPHOCYTES # (AUTO) 1.6 X10'3 (1.1-4.8); MONOCYTES # (AUTO) 0.8 X10'3 (0-0.9); NEUTROPHILS # (AUTO) 2.7 X10'3 (1.8-7.7)
[2025-01-23 04:24] LABS: BASOPHILS % (AUTO) 0.3 % (0-1); EOSINOPHILS % (AUTO) 0.3 % (0-6); HEMATOCRIT 39.8 % (42.0-52.0); LYMPHOCYTES % (AUTO) 30.8 % (21-51); MEAN CORPUSCULAR HEMOGLOBIN 32.6 PG (27.0-31.0); MEAN CORPUSCULAR HGB CONC 34.5 g/dL (33.0-36.5); MEAN CORPUSCULAR VOLUME 94.4 FL (78-98); MEAN PLATELET VOLUME 10.4 FL (7.4-10.4); MONOCYTES % (AUTO) 15.8 % (2-12); NEUTROPHILS % (AUTO) 52.8 % (42-75); PLATELET COUNT 66 X10'3 (140-440); RED BLOOD COUNT 4.22 X10'6 (4.70-6.10); RED CELL DISTRIBUTION WIDTH 14.8 % (11.5-14.5); WHITE BLOOD COUNT 5.2 X10'3 (4.5-11.0)
[2025-01-23 04:39] LABS: ALANINE AMINOTRANSFERASE 400 U/L (12-78); ALKALINE PHOSPHATASE 172 IU/L (46-116); ANION GAP 10 (8-16); ASPARTATE AMINO TRANSFERASE 510 U/L (10-37); BILIRUBIN,TOTAL 4.1 MG/DL (0.1-1.0); BLOOD UREA NITROGEN 15 MG/DL (7-18); BUN/CREATININE RATIO 19.7 (10.0-20.0); CALCIUM 7.3 MG/DL (8.5-10.1); CHLORIDE 105 MMOL/L (99-107); CREATININE 0.76 MG/DL (0.60-1.10); GLUCOSE 130 MG/DL (70-104); MAGNESIUM 1.9 MG/DL (1.5-2.4); POTASSIUM 3.6 MMOL/L (3.5-5.1); SODIUM 141 MMOL/L (135-145); eCRCL 108 ML/MIN; eGFR > 90 ML/MIN
[2025-01-23 04:46] LABS: ALBUMIN/GLOBULIN RATIO 0.7 (1.1-1.5); TOTAL PROTEIN 4.8 G/DL (6.4-8.2)
[2025-01-23 04:58] LABS: TOTAL CELLS COUNTED 100
[2025-01-23 04:59] LABS: PLATELET ESTIMATE DECREASED
[2025-01-23] MEDS ORDERED: proCHLORperazine 10 MG/2 ml inj IV PRN (08:10)
[2025-01-23] MEDS ORDERED: enalaprilat 1.25mg/ml 2ml vial IV PRN (08:10)
[2025-01-23] MEDS ORDERED: ondansetron/PF 4mg/2ml inj IV PRN ×2 (08:10→11:15)
[2025-01-23] MEDS ORDERED: morphine 2 MG/ML inj. syringe IV PRN (08:10)
[2025-01-23] MEDS ORDERED: meperidine/PF 25mg/ml syringe IV PRN ×3 (08:10)
[2025-01-23] MEDS ORDERED: labetalol 20mg/4ml (5mg/ml) syringe IV PRN (08:10)
[2025-01-23] MEDS ORDERED: BUPIVAcaine 2.5mg/ml inj 50ml vial (contains preservative) ONE (08:21)
[2025-01-23] MEDS ORDERED: midazolam 1 mg/ML 2ml injection ONE (10:02)
[2025-01-23] MEDS ORDERED: fentaNYL/PF 50MCG/1 ML 2ML syringe ONE (10:02)
[2025-01-23] MEDS ORDERED: rocuronium 10mg/ml inj IV ONE (10:09)
[2025-01-23] MEDS ORDERED: propofol inj 20 ML IV ONE (10:09)
[2025-01-23] MEDS ORDERED: LIDOcaine 2% (20mg/ml) 5ml vial ONE (10:10)
[2025-01-23] MEDS ORDERED: ondansetron/PF 4mg/2ml inj ONE (10:10)
[2025-01-23] MEDS ORDERED: sevoflurane 250ml liquid IH ONE (10:17)
[2025-01-23] MEDS: BUPIVAcaine/PF 2.5 mg/ml (0.25%) 30ml vial IJ ONE (10:39)
--- NOTE | 2025-01-23 11:12 | OPERATIVE REPORT ---
Operative Report Providers to CC ~ Date of Procedure: Jan 23, 2025 Pre-Operative Diagnosis: cholelithiasis Post-Operative Diagnosis SAME as PRE-Op Procedure Performed vianey healy Surgeon: rafat Electrical And Instrumentation Manager none Anesthesiologist: Javier Escalante Type of Anesthesia: General Findings: edematous distended gb Estimated Blood Loss: min Specimen Removed: gb OWEN STONE MD Jan 23, 2025 11:12
[2025-01-23] MEDS ORDERED: PCA WASTE DOCUMENTATION 1 MG ML MC SCH (11:15)
[2025-01-23] MEDS ORDERED: naloxone 0.4 mg/ml inj IV PRN (11:15)
[2025-01-23] MEDS: morphine 4 MG/ML inj SYRINge IV PRN (11:20)
[2025-01-23] MEDS: acetaminophen 1,000mg/100ml IV 100 ML IV ONE (12:09)
[2025-01-23] MEDS ORDERED: HYDROmorph/NS 0.2 mg/ml PCA 100 ML IV SCH (13:00)
--- NOTE | 2025-01-23 15:02 | CONSULTATION REPORT - RESIDENT ---
Consult Providers to CC Resident Creating Document: LLOYD CARROLL CC: JOHNSON CARRILLO MD History of Present Illness Reason for Admit\Complaint: Abdominal pain History of Present Illness Patient was admitted with the following HPI: A 49-year-old male with no significant medical history presented to the ED with periumbilical and epigastric pain that started on Tuesday with a severity of 6/10, sharp pain in character, no radiation, does not increased on deep breaths or any other aggravating factors but decreases with pain meds. Patient went to primary care doctor on Tuesday who recommended labs and ultrasound. Patient also had associated fever, chills and diarrhea for the last two days. Patient describes the diarrhea as lose formed stools for about 6-7 episodes but no associated blood. Patient denies nausea vomitings. Reportedly, patient had a hip near repair done eight months [address] Dr. Lema. Patient never underwent colonoscopy or upper GI endoscopy. Patient did not have at domestic or international travel or similar episodes in the past. Patient does not report similar symptoms in the family. Hospital course: Patient was was found to have significantly elevated LFTs and ALP, reason why he underwent MRCP and HIDA scan which did not show any obstruction of the bile ducts. Abdominal ultrasound did show possible signs of acute cholecystitis and patient underwent cholecystectomy today with Dr. Lira. Abdominal pain has improved, however, there is still concerns of possible CBD obstruction, reason why GI has been consulted for consideration of ERCP. Allergies: Coded Allergies: No Known Allergies (Unverified , 03/09/11) Home Medications Home Medications Active Reported Bupropion Xl (Bupropion HCl) 150 Mg Tab.er.24h Fluoxetine HCl 20 Mg Tablet 1 Tab PO DAILY Ibu-200 (Ibuprofen) 200 Mg Tablet 1-2 Tab PO Q6H PRN PRN NEEDED Past Medical History Past Medical History Alcohol use disorder Tobacco use disorder Past Surgical History Surgical History Comment Right inguinal hernia repair Past Social History Social History Comment Patient lives at home with and children [place] [facility] [place] [place] Patient smokes one pack of cigarettes per day for 13 years Patient concern for two five large beers per day with the last 13 years Patient works with heavy equipment Patient denies marijuana or illicit drug use ROS ROS All systems were reviewed and found negative except for pertinent positives mentioned in HPI Exam Vitals: Vital Signs Date Time Temp Pulse Resp B/P (MAP) Pulse Ox O2 Delivery O2 Flow Rate FiO2 01/23/25 12:15 64 14 91/55 (67) 94 Room Air 0.0 01/23/25 11:55 98.6 General: General: awake, alert oriented to place, time, and person HEENT: No pallor present, no icterus, moist mucous membranes Neck: No masses and tenderness Resp: Unlabored. Lungs clear to auscultation bilaterally. Chest: Normal expansion Cardiovascular: Regular Rate and rhythm, normal S1 and S2 without murmur, rub or gallop Abdomen: Soft and moderately tender to palpation around surgical wounds. Surgical wounds covered with clean dressing. No organomegaly, no guarding and rigidity, bowel sounds present Neuro: No focal weakness in the upper and lower limb muscles, power of the muscles 5/5 bilateral upper and lower extremities, normal reflexes bilaterally. Cranial nerves intact Extremities: No cyanosis,clubbing or edema Skin: Warm and Dry. No lesions Psych: Normal affect Diagnostic Data Last Recorded Lab Results: 01/23/25 0401 01/23/25 0401 Additional Plan Gastroenterology consultation note: A 49-year-old male with no significant medical history presented to the ED with periumbilical and epigastric pain. Patient was was found to have significantly elevated LFTs and ALP, reason why he underwent MRCP and HIDA scan which did not show any obstruction of the bile ducts. Abdominal ultrasound did show possible signs of acute cholecystitis and patient underwent cholecystectomy today with Dr. Lira. Abdominal pain has improved, however, there is still concerns of possible CBD obstruction, reason why GI has been consulted for consideration of ERCP. Acute cholecystitis s/p robotic cholecystectomy, POD 0 Transaminitis/hyperbilirubinemia, rule out CBD obstruction Labs show: AST 841, 703, 597, 510 ALT 615, 519, 420, 400 ALP 180, 167, 166, 172 Bilirubin: 3.1, 3.5, 3.6, 4.1 MRCP and HIDA scan did not show CBD/cystic duct obstruction Preop ultrasound showed findings equivocal for acute cholecystitis Patient is on Zosyn, day 3 Patient discussed in detail with Dr. Carrillo, plan: - Continue trending LFTs - Will decide on ERCP in am depending on labs - Sips of water only - Otherwise continue recommendations per Dr Lira - Plan discussed with primary attending Dr. Ramachandran Disposition: Possible ERCP in a.m. depending on labs Lloyd Livingston MD Internal Medicine Resident PGY-1 Date of Service: Jan 23, 2025 Billing Provider: JOHNSON CARRILLO MD, LEONARDO LUIS Jan 23, 2025 15:02
[2025-01-23] MEDS: ringers solution, lacted 1,000 ML IV SCH (15:57)
[2025-01-23] MEDS: HYDROcodone/acetaminophen 10/325mg tab PO PRN (16:12)
--- NOTE | 2025-01-23 18:47 | PROGRESS NOTE ---
Daily Progress Note Providers to CC ~ Antibiotic Timeout Antibiotic Ordered?: Yes Subjective The patient went for laparoscopic cholecystectomy today I evaluated him after surgery-the patient has a bilirubin continues GI was consulted and Dr. Campuzano we will monitor the trend of the patient's bilirubin- the patient is doing well postop Objective Vital Signs Date Time Temp Pulse Resp B/P (MAP) Pulse Ox O2 Delivery O2 Flow Rate FiO2 01/23/25 16:12 16 01/23/25 12:15 64 91/55 (67) 94 Room Air 0.0 01/23/25 11:55 98.6 Result Diagram: 01/23/25 0401 01/23/25 0401 Gen. No acute distress alert and oriented 4 Lungs clear to ascultation bilaterally, no wheezes rales or rhonchi appreciated Heart normal sinus rhythm no murmurs rubs or clicks noted Abdomen semi firm, significant guarding, nontender bowel sounds are normoactive Lower extremities no clubbing cyanosis, nor edema appreciated bilaterally Problem\Assessment\Plan Problems/Diagnosis: (1) Acute cholecystitis # acute cholecystitis- MRCP was obtained that was negative for choledocholithiasis even though the bilirubin is up trending The EF was not able to be calculated and a HIDA scan. on IV Zosyn awaiting surgical consult with Dr. Jonel Lira #01/22 cholecystectomy this afternoon with Dr. Lira #01/23 the patient went for a laparoscopic cholecystectomy this morning the surgery was not performed last evening-the patient is doing well postop # transaminitis with slight improvement in liver function Monitor daily CMP Likely secondary to acute cholecystitis as well as chronic liver disease 01/23 bilirubin continues to up trend - Dr. Campuzano algebra teacher evaluated the patient and is recommending trending the bilirubin and the bilirubin continues to up trend the patient will go for an ERCP tomorrow # alcohol use disorder Alcohol withdrawal protocol # thrombocytopenia Note the patient has a normal platelet count in 2023 drawn just prior to inguinal hernia repair #01/22 platelet count slightly up trending continue monitor daily CBC #01/23 platelets continued to up trend continue monitor # tobacco use disorder Nicotine patch # hypokalemia on potassium replacement protocol Date of Service: Jan 23, 2025 Billing Provider: PAUL GALLOWAY DO Common Visit Codes: [id number] INP/OBS CARE(HIGH) PAUL GALLOWAY DO Jan 23, 2025 18:47
--- NOTE | 2025-01-23 20:42 | CONSULTATION ---
DATE OF CONSULTATION: 01/22/2025 DICTATING PHYSICIAN: Jonel Lira MD REASON FOR CONSULTATION: Evaluation of abdominal pain. HISTORY OF PRESENT ILLNESS: The patient is a 49-year-old male admitted on 01/20 with complaints of severe abdominal discomfort. Subsequent workup revealed cholelithiasis. The patient has had elevated LFTs. Complains of intermittent abdominal discomfort. No history of peptic ulcer disease. PAST MEDICAL HISTORY: Essentially unremarkable. PAST SURGICAL HISTORY: Inguinal hernia repair. HOME MEDICATIONS: Include Wellbutrin, fluoxetine, and Motrin as needed. SOCIAL HISTORY: Ongoing tobacco and alcohol use. REVIEW OF SYSTEMS: See H and P. PHYSICAL EXAMINATION: GENERAL: A well-nourished male, in minimal distress. VITAL SIGNS: Unremarkable. HEART: Regular rate and rhythm. LUNGS: Clear to auscultation. ABDOMEN: Minimal tenderness at the present time. No signs of peritonitis. EXTREMITIES: Unremarkable. NEUROLOGIC: Nonfocal. LABORATORY DATA: WBC of 4.5, hematocrit of 39, platelet count is 57. Chemistries include a total bilirubin of 3.6. AST and ALT elevated at 597/420, alkaline phosphatase 166, ____ on admission. IMAGING STUDIES: * HIDA scan reveals no evidence of cystic duct obstruction. * MRCP reveals cholelithiasis with pericholecystic edema. IMPRESSION: Cholelithiasis with elevated LFTs. Question the patient's passing stones, increase of alcohol use. RECOMMENDATIONS: * Robotic cholecystectomy. * Hepatitis workup. Jonel Lira MD TID: [id number] RECEIPT: [id number] FEDERICO/JENNIFER/ALEXANDER
[2025-01-24 01:51] VITALS: BP 109/60; PULSE 44; RESP 20; O2SAT 95
[2025-01-24 04:40] LABS: BASOPHILS # (AUTO) 0.1 X10'3 (0-0.2); BASOPHILS % (AUTO) 0.6 % (0-1); EOSINOPHILS % (AUTO) 0.2 % (0-6); HEMOGLOBIN 14.5 g/dl (14.0-17.9); LYMPHOCYTES # (AUTO) 3.7 X10'3 (1.1-4.8); LYMPHOCYTES % (AUTO) 40.3 % (21-51); MEAN CORPUSCULAR HEMOGLOBIN 32.2 PG (27.0-31.0); MEAN CORPUSCULAR HGB CONC 34.6 g/dL (33.0-36.5); MEAN CORPUSCULAR VOLUME 93.1 FL (78-98); MEAN PLATELET VOLUME 10.3 FL (7.4-10.4); MONOCYTES # (AUTO) 0.8 X10'3 (0-0.9); MONOCYTES % (AUTO) 8.9 % (2-12); NEUTROPHILS # (AUTO) 4.7 X10'3 (1.8-7.7); PLATELET COUNT 134 X10'3 (140-440); RED BLOOD COUNT 4.51 X10'6 (4.70-6.10); RED CELL DISTRIBUTION WIDTH 15.6 % (11.5-14.5); WHITE BLOOD COUNT 9.3 X10'3 (4.5-11.0)
[2025-01-24 04:54] LABS: ALANINE AMINOTRANSFERASE 337 U/L (12-78); ALBUMIN/GLOBULIN RATIO 0.6 (1.1-1.5); ALKALINE PHOSPHATASE 173 IU/L (46-116); ANION GAP 7 (8-16); ASPARTATE AMINO TRANSFERASE 306 U/L (10-37); BILIRUBIN,TOTAL 3.4 MG/DL (0.1-1.0); BLOOD UREA NITROGEN 18 MG/DL (7-18); BUN/CREATININE RATIO 26.5 (10.0-20.0); CALCIUM 7.4 MG/DL (8.5-10.1); CHLORIDE 107 MMOL/L (99-107); CREATININE 0.68 MG/DL (0.60-1.10); GLUCOSE 153 MG/DL (70-104); MAGNESIUM 2.1 MG/DL (1.5-2.4); POTASSIUM 3.9 MMOL/L (3.5-5.1); SODIUM 139 MMOL/L (135-145); TOTAL PROTEIN 5.3 G/DL (6.4-8.2); eCRCL 121 ML/MIN; eGFR > 90 ML/MIN
[2025-01-24 05:43] VITALS: BP 103/40; PULSE 42; RESP 24; TEMP 96.8; O2SAT 99
--- NOTE | 2025-01-24 05:46 | OPERATIVE REPORT ---
DATE OF SURGERY: 01/20/2025 DICTATING PHYSICIAN: Jonel Lira MD PREOPERATIVE DIAGNOSIS: Cholelithiasis. POSTOPERATIVE DIAGNOSIS: Cholelithiasis. PROCEDURE PERFORMED: Robotic cholecystectomy. SURGEON: Jonel Lira MD TRANSPORTATION ANALYST: None. ANESTHESIA: General/Dr. Escalante. DRAINS: None. INDICATIONS FOR OPERATION: A 49-year-old male with abdominal pain found to have cholelithiasis and elevated LFTs. INTRAOPERATIVE FINDINGS: Distended and edematous gallbladder. DESCRIPTION OF PROCEDURE: The patient was placed supine on the operating table. After induction of general anesthesia and placement of endotracheal tube, the abdomen was prepped and draped. A subumbilical incision was then made and Tobias port placed using open technique and pneumoperitoneum was begun by insufflation of CO2. Additional ports were placed in left lower quadrant and right lateral abdomen. Robot was then brought to the field. Camera port docked. Camera placed, camera targeted. Additional ports were then docked and instruments placed. Abdomen was then explored. Adhesions were taken down. Gallbladder fundus was grasped and retracted cephalad. Gallbladder was found to be quite edematous. Cystic duct identified, isolated, ligated, clipped and divided the cystic artery. The gallbladder was mobilized off the gallbladder fossa. Hemostasis was found to be adequate. Robotic instruments were removed, robot undocked from the field. Gallbladder was placed in Endobag using laparoscope. Abdomen was irrigated with large antibiotic-containing solution. Ports were then removed under laparoscopic vision with no active bleeding. Final port and camera were withdrawn. Pneumoperitoneum was then evacuated along with gallbladder removed using Endobag. Wounds were closed in layers. Skin was closed with clips. Dressing was applied. The patient was transferred to recovery in stable condition. Jonel Lira MD TID: [id number] RECEIPT: [id number] FEDERICO/TIA/MICHELE
[2025-01-24 06:00] VITALS: BP 96/50; PULSE 42; RESP 25; TEMP 97; O2SAT 96
--- NOTE | 2025-01-24 09:18 | PROGRESS NOTE- Residence ---
Progress Note - Resident Providers to CC Resident Creating Document: LLOYD CARROLL CC: JOHNSON CARRILLO MD ~ Antibiotic Timeout Antibiotic Ordered?: Yes Subjective Patient was seen at bedside today. He was moved to PCU due to bradycardia last night. Patient states that his resting heart rate is usually between 40-50. He is asymptomatic. Otherwise he states he is feeling well. He is passing gas, but no BM yet. No significant abdominal pain, nausea, vomiting, or diarrhea. Objective Vital Signs Date Time Temp Pulse Resp B/P (MAP) Pulse Ox O2 Delivery O2 Flow Rate FiO2 01/24/25 07:48 37 01/24/25 06:00 97.0 25 96/50 (65) 96 Room Air 01/23/25 20:00 0.0 Result Diagram: 01/24/2541201/24/25412 General: awake, alert oriented to place, time, and person HEENT: No pallor present, no icterus, moist mucous membranes Neck: No masses and tenderness Resp: Unlabored. Lungs clear to auscultation bilaterally. Chest: Normal expansion Cardiovascular: Regular Rate and rhythm, normal S1 and S2 without murmur, rub or gallop Abdomen: Soft and moderately tender to palpation around surgical wounds. Surgical wounds covered with clean dressing. No organomegaly, no guarding and rigidity, bowel sounds present Neuro: No focal weakness in the upper and lower limb muscles, power of the muscles 5/5 bilateral upper and lower extremities, normal reflexes bilaterally. Cranial nerves intact Extremities: No cyanosis,clubbing or edema Skin: Warm and Dry. No lesions Psych: Normal affect Plan Plan Gastroenterology progress note: A 49-year-old male with no significant medical history presented to the ED with periumbilical and epigastric pain. Patient was was found to have significantly elevated LFTs and ALP, reason why he underwent MRCP and HIDA scan which did not show any obstruction of the bile ducts. Abdominal ultrasound did show possible signs of acute cholecystitis and patient underwent cholecystectomy today with Dr. Lira. Abdominal pain has improved, however, there is still concerns of possible CBD obstruction, reason why GI has been consulted for consideration of ERCP. Acute cholecystitis s/p robotic cholecystectomy, POD 1 Transaminitis/hyperbilirubinemia, rule out CBD obstruction Possible reactive cholestatic process Labs show: AST 841, 703, 597, 510, 306 ALT 615, 519, 420, 400, 337 ALP 180, 167, 166, 172, 173 Bilirubin: 3.1, 3.5, 3.6, 4.1, 3.4 MRCP and HIDA scan did not show CBD/cystic duct obstruction Preop ultrasound showed findings equivocal for acute cholecystitis Patient is on Zosyn, day 4 Patient discussed in detail with Dr. Carrillo, plan: - In view of improved LFTs, will defer ERCP for now - Continue trending LFTs - Ok to advance diet - In view of no BM, ok to DC cdiff order and isolation - Otherwise continue recommendations per Dr Lira Disposition: Will observe. No ERCP for now Lloyd Livingston MD Internal Medicine Resident PGY-1 Date of Service: Jan 24, 2025 Billing Provider: JOHNSON CARRILLO MD, LEONARDO LUIS Jan 24, 2025 09:18
[2025-01-24 11:00] VITALS: BP 91/73; PULSE 46; RESP 16; O2SAT 95
--- NOTE | 2025-01-24 11:50 | PATHOLOGY REPORT ---
[facility] [address] [place] [address] SURGICAL PATHOLOGY REPORT CaseNumber: [id number] Surgeon:Jonel Lira M.D. CLINICAL INFORMATION CLINICAL INFORMATION: Acute cholecystitis. DIAGNOSIS DIAGNOSIS: GALLBLADDER, ROBOTIC-ASSISTED LAPAROSCOPIC SANTA - MILD CHOLECYSTITIS - NO GALLSTONES ARE GROSSLY IDENTIFIED - NO DYSPLASIA OR MALIGNANCY MICROSCOPIC DESCRIPTION MICROSCOPIC DESCRIPTION: Performed. GROSS DESCRIPTION GROSS DESCRIPTION: Received in a container of formalin labeled with the patient's name, number, and " cholecyst" is a disrupted gallbladder which measures 5 cm long by 2.5 cm in diameter. The serosa is s mooth and manzanares. The surgical bed is unremarkable. Sectioning reveals a small amount of viscous dark gr een bile but no stones. The specimen container is strained and no stones are found. The mucosa is re d and granular. A discrete mass lesion is not identified. The wall of the gallbladder measures up to 0.6 cm thick. Dental Financial Coordinator sections of the neck and wall of the gallbladder are submitted as A1.Th e time at which the specimen was removed was 1040. The time at which the specimen was placed in forma marcus was 1100. ([facility]) Electronically signed by: Benny Lauren M.D. 01/24/2025 11:15:00 AM
--- NOTE | 2025-01-24 17:31 | PROGRESS NOTE ---
Progress Note ID Providers to CC ~ Progress Note Progress Note: doing well/advance diet OWEN STONE MD Jan 24, 2025 17:31
[2025-01-24] MEDS: LORazepam 2 mg/ml vial IV ONE (17:44)
[2025-01-24] MEDS: nicotine 14mg patch - 24hr TD SCH (17:45)
[2025-01-24] MEDS ORDERED: haloperidol 5mg tablet PO PRN (17:50)
[2025-01-24] MEDS ORDERED: LORazepam 2 mg/ml vial IV PRN (17:50)
[2025-01-24] MEDS ORDERED: haloperidol lactate 5mg/ml inj IM PRN (17:50)
--- NOTE | 2025-01-24 17:59 | PROGRESS NOTE ---
Daily Progress Note Providers to CC ~ Objective Vital Signs Date Time Temp Pulse Resp B/P (MAP) Pulse Ox O2 Delivery O2 Flow Rate FiO2 01/24/25 16:33 16 01/24/25 11:00 46 91/73 (79) 95 Room Air 01/24/25 08:00 0.0 01/24/25 06:00 97.0 Result Diagram: 01/24/25 0413 01/24/25 0413 Problem\Assessment\Plan Problems/Diagnosis: (1) Acute cholecystitis # acute cholecystitis- MRCP was obtained that was negative for choledocholithiasis even though the bilirubin is up trending The EF was not able to be calculated and a HIDA scan. on IV Zosyn awaiting surgical consult with Dr. Jonel Lira #01/22 cholecystectomy this afternoon with Dr. Lira #01/23 the patient went for a laparoscopic cholecystectomy this morning the surgery was not performed last evening-the patient is doing well postop # transaminitis with slight improvement in liver function Monitor daily CMP Likely secondary to acute cholecystitis as well as chronic liver disease 01/23 bilirubin continues to up trend - Dr. Campuzano post closing specialist evaluated the patient and is recommending trending the bilirubin and the bilirubin continues to up trend the patient will go for an ERCP tomorrow # alcohol use disorder Alcohol withdrawal protocol # thrombocytopenia Note the patient has a normal platelet count in 2023 drawn just prior to inguinal hernia repair #01/22 platelet count slightly up trending continue monitor daily CBC #01/23 platelets continued to up trend continue monitor # tobacco use disorder Nicotine patch # hypokalemia on potassium replacement protocol FEDERICO FIGUEROA MD Jan 24, 2025 17:59
[2025-01-24 18:00] VITALS: BP 114/63; PULSE 52; RESP 25; TEMP 97.1; O2SAT 97
--- NOTE | 2025-01-24 18:36 | CONSULTATION REPORT ---
Cardiac Consultation Report Providers to CC ~ Subjective Subjective Cardiology consultation: Sinus bradycardia. Dr. Manley called me at the end of her shift to come see this patient for sinus bradycardia who has been here for several days and has had a cholecystectomy. Phone by Dr. Renner. Eight month ago had bilateral hernia repair by Dr. Lema . Presently he is being visited by his daughter and by his significant other. He is angry and hostile with them. He wants to leave the hospital as he wants to go smoke. Picking at his intravenous line and wants to know what they are for. He has this significant other tells me that he has not been receiving his psychotropic medications since hospitalization and they are concerned. He does not have any angina pectoris palpitation presyncope or syncope. There is a remote history in 2005 in [place] of having had an angioplasty/stent procedure for a myocardial infarction. Twelve lead electrocardiogram is performed while the family standing around and there is no changes compared to pre procedure. General cares at [facility] It is unclear if he still has nitroglycerin tablets. To have it. He used to take aspirin 81 mg daily. Psychotropic medications are fluoxetine and bupropion. He has alcohol use disorder and nicotine use disorder. Objective Vitals Vital Signs Date Time Temp Pulse Resp B/P (MAP) Pulse Ox O2 Delivery O2 Flow Rate FiO2 01/24/25 16:33 16 01/24/25 11:00 46 91/73 (79) 95 Room Air 01/24/25 08:00 0.0 01/24/25 06:00 97.0 Lab Results: 01/24/25 0413 01/24/25 0413 Objective Carotid no bruit chest clear to auscultation percussion heart no murmur S3 gallop no rub abdomen active bowel sounds no bruits pulses plus two upper and lower extremities. No tremor no nystagmus patient denies hallucination she he stares at me and is angry when I asked him the question. Problem\Assessment\Plan Additional Plan Impression 1. Asymptomatic sinus bradycardia 2. Chronic personality anger disorder manifested when his daughter needed to apologize to him because he disagrees with what she said he said. It is as if everyone is trying to keep him calm and they were afraid of him. Recommendation: 1. Restart his psychotropic medication 2. Evaluate for alcohol withdrawal syndrome 3. No need of a permanent pacemaker. We will sign off. BISHOP CHRISTIANSEN MD Jan 24, 2025 18:36
[2025-01-24 22:00] VITALS: BP 95/54; PULSE 74; RESP 13; TEMP 97.2; O2SAT 93
[2025-01-25 02:00] VITALS: BP 115/61; PULSE 66; RESP 27; TEMP 98.3; O2SAT 96
[2025-01-25 05:37] LABS: INR 1.3 INR
[2025-01-25 05:46] LABS: BASOPHILS # (AUTO) 0.1 X10'3 (0-0.2); BASOPHILS % (AUTO) 1.2 % (0-1); EOSINOPHILS % (AUTO) 0.3 % (0-6); HEMATOCRIT 41.5 % (42.0-52.0); HEMOGLOBIN 14.3 g/dl (14.0-17.9); LYMPHOCYTES # (AUTO) 3.3 X10'3 (1.1-4.8); LYMPHOCYTES % (AUTO) 44.9 % (21-51); MEAN CORPUSCULAR HEMOGLOBIN 31.9 PG (27.0-31.0); MEAN CORPUSCULAR HGB CONC 34.5 g/dL (33.0-36.5); MEAN CORPUSCULAR VOLUME 92.4 FL (78-98); MEAN PLATELET VOLUME 10.4 FL (7.4-10.4); MONOCYTES # (AUTO) 0.6 X10'3 (0-0.9); MONOCYTES % (AUTO) 7.6 % (2-12); NEUTROPHILS # (AUTO) 3.3 X10'3 (1.8-7.7); PLATELET COUNT 140 X10'3 (140-440); RED BLOOD COUNT 4.49 X10'6 (4.70-6.10); RED CELL DISTRIBUTION WIDTH 15.9 % (11.5-14.5); WHITE BLOOD COUNT 7.3 X10'3 (4.5-11.0)
[2025-01-25 06:00] VITALS: BP 134/74; PULSE 66; RESP 28; TEMP 97.5; O2SAT 97
[2025-01-25 06:01] LABS: ALANINE AMINOTRANSFERASE 286 U/L (12-78); ALBUMIN 1.9 G/DL (3.4-5.0); ALBUMIN/GLOBULIN RATIO 0.7 (1.1-1.5); ALKALINE PHOSPHATASE 185 IU/L (46-116); AMYLASE 55 U/L (25-115); ANION GAP 4 (8-16); ASPARTATE AMINO TRANSFERASE 235 U/L (10-37); BILIRUBIN,TOTAL 3.5 MG/DL (0.1-1.0); BLOOD UREA NITROGEN 13 MG/DL (7-18); BUN/CREATININE RATIO 17.6 (10.0-20.0); CALCIUM 6.7 MG/DL (8.5-10.1); CHLORIDE 106 MMOL/L (99-107); CREATININE 0.74 MG/DL (0.60-1.10); GLUCOSE 116 MG/DL (70-104); LIPASE 79 U/L (16-77); MAGNESIUM 1.8 MG/DL (1.5-2.4); PHOSPHORUS 1.5 MG/DL (2.3-4.5); POTASSIUM 3.3 MMOL/L (3.5-5.1); SODIUM 136 MMOL/L (135-145); THYROID STIMULATING HORMONE 1.39 ulU/ml (0.34-4.50); TOTAL CARBON DIOXIDE 26.1 MMOL/L (24-32); TOTAL PROTEIN 4.8 G/DL (6.4-8.2); eCRCL 111 ML/MIN; eGFR > 90 ML/MIN
[2025-01-25 07:11] LABS: HBSAG SCREEN Negative (Negative); HEP A AB, IGM Negative (Negative); HEP B CORE AB, IGM Negative (Negative); HEPATITIS C VIRUS ANTIBODY Non Reactive (Non Reactive)
[2025-01-25] MEDS: folic acid 1mg tablet PO SCH (07:21)
[2025-01-25] MEDS: thiamine 100mg tablet PO SCH (07:21)
[2025-01-25] MEDS: multivitamins, therapeutics tablet PO SCH (07:22)
[2025-01-25] MEDS: LORazepam 1 MG tablet PO PRN (07:25)
--- NOTE | 2025-01-25 08:22 | DISCHARGE SUMMARY ---
Discharge Summary Providers to CC ~ Discharge Summary Admission Diagnosis: cholelithiasis Hospital Course DATE OF ADMISSION: 01/20/2025 DATE OF DISCHARGE: 01/25/2025 Condition on DC: Stable Discharge Summary: History of Present Illness A 49-year-old male with no significant medical history presented to the ED with periumbilical and epigastric pain that started on Tuesday with a severity of 6/10, sharp pain in character, no radiation, does not increased on deep breaths or any other aggravating factors but decreases with pain meds. Patient went to primary care doctor on Tuesday who recommended labs and ultrasound. Patient also had associated fever, chills and diarrhea for the last two days. Patient describes the diarrhea as lose formed stools for about 6-7 episodes but no as sociated blood. Patient denies nausea vomitings. Reportedly, patient had a hip near repair done [address] Lema. Patient never underwent colonoscopy or upper GI endoscopy. Patient did not have at domestic or international travel or similar episodes in the past. Patient does not report similar symptoms in the family. *Problems/Diagnosis: (1) Acute cholecystitis FEDERICO FIGUEROA MD Jan 25, 2025 08:22
[2025-01-25] MEDS ORDERED: HYDR-3964 PO (08:25)
[2025-01-25 11:04] VITALS: BP 103/60; PULSE 66; RESP 26; TEMP 97.7; O2SAT 94
--- NOTE | 2025-01-26 07:59 | ELECTROCARDIOGRAPH REPORT ---
[facility] Test Date: 2025-01-24 Test Time: 18:16:56 Pat Name: SANAZ RAHMAN Department: 3rd FLOOR PCU Room: [facility] [address] Gender: M [employer] Operator: : [id number] Requested By: PAUL GALLOWAY Order Number: [id number] Reading MD: Dr. BHARTI Posey Measurements Intervals [place] Rate: 55 P: 47 OR: 175 QRS: 34 QRSD: 98 T: 23 QT: 447 QTc: 428 Interpretive Statements Sinus rhythm RSR' in V1 or V2, probably normal variant Artifact in lead(s) I,II,aVR,aVF,V2,V3,V4,V5,V6 Electronically Signed On 01-28-2025 9:10:[address] BHARTI Posey Please click the below link to view image of tracing.
[2025-01-28] MEDS ORDERED: thiamine 100mg tablet PO SCH (08:00)
[2025-01-29] MEDS ORDERED: folic acid 1mg tablet PO SCH (08:00)
== END 2025-01-25 13:21 | disposition home or self-care (01) | DRG 263 ==
LOC: ER 13:48 → ED HOLD 20:56 → SUR 3N 21:54 → PCU 3S 01-24 05:09
PROVIDERS: ADMIT Internal Medicine; ATTEND Family Medicine
PROC: 0FT44ZZ Resection of Gallbladder, Percutaneous Endoscopic Approach (ICD-10-PCS; principal; 2025-01-20)
PROC: 8E0W4CZ Robotic Assisted Procedure of Trunk Region, Percutaneous Endoscopic Approach (ICD-10-PCS; 2025-01-20)
PROC: CF1C1ZZ Planar Nuclear Medicine Imaging of Hepatobiliary System, All using Technetium 99m (Tc-99m) (ICD-10-PCS; 2025-01-21)
PROC: 30233R1 Transfusion of Nonautologous Platelets into Peripheral Vein, Percutaneous Approach (ICD-10-PCS; 2025-01-23)
DX: K80.00 Calculus of gallbladder with acute cholecystitis without obstruction (principal); D69.6 Thrombocytopenia, unspecified; R16.2 Hepatomegaly with splenomegaly, not elsewhere classified; F10.20 Alcohol dependence, uncomplicated; I25.10 Atherosclerotic heart disease of native coronary artery without angina pectoris; E87.6 Hypokalemia; R74.01 Elevation of levels of liver transaminase levels; E80.6 Other disorders of bilirubin metabolism
CPT/HCPCS: 36415; 36430; 74177; 74181; 76700; 78227; 80053; 80061; 80074; 80320; 80329; 81001; 82150; 82948; 83036; 83605; 83690; 83735; 84100; 84443; 85007; 85025; 85610; 86885; 86900; 86901; 87040; 87045; 87046; 87081; 89055; 93005; 93306; 96374; 99285; A4215; A4618; A6212; A6590; A7000; A9537; G0378; J0131; J1100; J1885; J2003; J2060; J2250; J2270; J2405; J2543; J2704; J2710; J2805; J3010; J3411; J3490; J7030; J7042; J7120; P9035; Q9967